=== PATIENT | male | born 1995 | race Two or more races ===

== ENCOUNTER → 2020-04-08 13:35 | Outpatient (BNVA) | payer OTHER, SELFPAY | PROVIDERS: Visit Provider Physician Assistant | DX: Z76.89 Persons encountering health services in other specified circumstances (principal) ==

== ENCOUNTER → 2020-04-15 15:59 | Outpatient (BNVA) | payer OTHER, SELFPAY | PROVIDERS: Visit Provider Physician Assistant | DX: M25.511 Pain in right shoulder (principal); M25.551 Pain in right hip; M25.521 Pain in right elbow; S40.211A Abrasion of right shoulder, initial encounter; S70.211A Abrasion, right hip, initial encounter; S50.311A Abrasion of right elbow, initial encounter; W18.30XA Fall on same level, unspecified, initial encounter | CPT/HCPCS: 99213 ==

== ENCOUNTER → 2020-04-23 13:20 | Outpatient (BNVA) | payer OTHER, SELFPAY | PROVIDERS: Visit Provider Physician Assistant | DX: M25.511 Pain in right shoulder (principal); Z91.81 History of falling | CPT/HCPCS: 73030; 99214 ==

== ENCOUNTER → 2020-05-14 14:44 | Outpatient (BNVA) | payer OTHER, SELFPAY | PROVIDERS: Visit Provider Physician Assistant | DX: M25.511 Pain in right shoulder (principal) | CPT/HCPCS: 99213 ==

== ENCOUNTER 2020-06-06 15:00 | Outpatient (RCR) | payer OTHER, SELFPAY ==
--- NOTE | 2020-06-09 16:26 | MHC.PT.DC ---
[facility] [place] [facility] [place] [facility] [place] [facility] [address] Adryan Álvarez [address] [phone] F: [phone] F: [phone] F: [phone] F: [phone] Physical Therapy Discharge Report Diagnosis: Pt is a 24 y/o male referred to skilled PT with right shoulder pain. Date of Surgery: Date of Evaluation: 04/25/20 Date of Discharge: 06/06/20 Treatments to Date: 9 Cancellations to Date: 2 No Shows to Date: 2 Discharge Status: Achieved Goals Improved Function Independent with HEP Discharge Summary: Pt has improved and demonstrates I w/ HEP. No pain reported x several visits. D/C at this time. Electronically signed by: Aimee Webb PT, DPT Please sign and return to therapist. Thank you for your referral.
--- NOTE | 2020-06-09 16:28 | MHC.PT.EP ---
[facility] [place] [facility] [place] [facility] [place] [facility] [address] [phone] F: [phone] F: [phone] F: [phone] F: [phone] Physical Therapy Plan of Care Date of Evaluation: 06/06/20 Date of Surgery: Diagnosis: Pt is a 24 y/o male referred to skilled PT with right shoulder pain. Assessment: Pt is a 24 y/o male referred to skilled PT for right shoulder pain. Assessment reveals mild decreased ROM, tenderness to palpation @ teres minor and major muscles, decreased strength, pain, and impaired posture/postural awareness. Related functional limitations include: difficulty lifting, reaching, laying on the right shoulder, pushing, bathing, dressing, and carrying anything greater than light weighted objects. Pt will benefit from skilled PT services 2x/week for 6 weeks in order to reduce impairments and improve limitations. Frequency and Duration: The patient will be seen 2x/week for 6 weeks, minimum of 38 minutes Short Term Goals: STG Met for [facility] [employer] Goals: LTG for independent GYM routine Treatment Plan: Modalities to reduce pain, spasms and effusion. Manual therapy to restore motion and function. Therapeutic exercise to improve strength and flexibility. Neuromuscular re-education for posture and balance. Therapeutic activities to return to functional activities of daily living. Please sign and return to therapist. Thank you for your referral.
== END 2020-06-09 16:30 | disposition other institution (70) ==
LOC: HO.PT 15:00
PROVIDERS: Visit Provider Physician Assistant
DX: M25.511 Pain in right shoulder (principal); Z91.81 History of falling
CPT/HCPCS: 97110; 97140; 97161